=== PATIENT | female | born 1940 | race Caucasian/White ===

== ENCOUNTER 2016-11-26 12:51 | Emergency (ER) | payer OTHER ==
[~2016-11-26] VITALS: Ht 162.6 cm; Wt 68.1 kg
[~2016-11-26 12:51] MED LIST: ALPRAZOLAM0.5 MG PO; ASPIRIN81 M1 PO; CLONIDINE HCL0.1 MG PO; FEOSOL325 MG PO; LEVOTHYROXINE25 MCG PO; LOXAPINE10 MG PO; METOPROLOL TAR100 MG PO; PANTOPRAZOLE SO40 MG PO; ROBITUSSIN100 MG/5 M PO; TOPROL XL100 MG PO; TRICOR145 MG PO; ZESTRIL,PRINIVI10 MG PO
[2016-11-26] MEDS ORDERED: MOTRIN400 MG PO (14:59)
[2016-11-26] MEDS ORDERED: PERCOCET 5/31 TABLET PO (14:59)
[2016-11-26 15:28] VITALS: BP 129/90
== END 2016-11-26 15:28 | disposition home or self-care (01) ==
LOC: EME 12:51
DX: S80.02XA Contusion of left knee, initial encounter (principal); X58.XXXA Exposure to other specified factors, initial encounter; I10 Essential (primary) hypertension; Z79.82 Long term (current) use of aspirin
CPT/HCPCS: 73564; 99281; 99284; G8978 GP CI; G8979 GP CH; G8987 GO CI; G8988 GO CH